=== PATIENT | male | born 1995 | race Caucasian/White ===

== ENCOUNTER 2022-06-25 14:19 | Emergency (ER) | payer OTHER, SELFPAY ==
[2022-06-25] MEDS ORDERED: Ketorolac Tromethamine 30 MG/ML VIAL ONE (16:23)
== END 2022-06-25 19:30 | disposition home or self-care (01) ==
LOC: ERS 14:19
DX: S16.1XXA Strain of muscle, fascia and tendon at neck level, initial encounter (principal); V80.018A Animal-rider injured by fall from or being thrown from other animal in noncollision accident, initial encounter
CPT/HCPCS: 72125; 72141; 96372; J1885